=== PATIENT | female | born 1940 | race Caucasian/White ===

== ENCOUNTER 2018-03-24 08:49 | Day surgery (SDC) | payer MEDICARE, OTHER ==
[~2018-03-24] VITALS: Ht 161.3 cm; Wt 82.0 kg
[2018-03-24] VITALS (7 sets, daily range): BP systolic 104–146; BP diastolic 70–95
[~2018-03-24 08:49] MED LIST: ATOR80TA PO; BUPR150T6 PO; ESTR42.53 VG; HYDR-565 PO; LEVO75TA PO; LIDOcaine 1%/PF 5ML 10 MG/ML VIAL SQ ONE; METF-436 PO; PANT40SU2 PO; PARO-62 PO; SENN8.6C6 PO; TRAZ-218 PO
[2018-03-24] MEDS ORDERED: COENZYME PO (09:30)
[2018-03-24] MEDS ORDERED: RABE20TA28 PO (09:30)
[2018-03-24] MEDS ORDERED: CYA500T PO (09:30)
== END 2018-03-24 10:50 | disposition home or self-care (01) ==
LOC: SSTAY O 08:49
PROVIDERS: ATTEND Radiology Diagnostic Radiology
DX: J90 Pleural effusion, not elsewhere classified (principal); F32.9 Major depressive disorder, single episode, unspecified; E11.22 Type 2 diabetes mellitus with diabetic chronic kidney disease; N18.3 Chronic kidney disease, stage 3 (moderate); K21.9 Gastro-esophageal reflux disease without esophagitis; E78.5 Hyperlipidemia, unspecified; E03.9 Hypothyroidism, unspecified; M19.90 Unspecified osteoarthritis, unspecified site; Z85.72 Personal history of non-Hodgkin lymphomas; Z72.89 Other problems related to lifestyle; Z79.891 Long term (current) use of opiate analgesic; Z79.84 Long term (current) use of oral hypoglycemic drugs; Z87.891 Personal history of nicotine dependence; Z87.440 Personal history of urinary (tract) infections; Z79.899 Other long term (current) drug therapy; Z98.890 Other specified postprocedural states
CPT/HCPCS: 32555; 71045; J2001